=== PATIENT | female | born 2000 | race African-American/Black ===

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

== ENCOUNTER 2019-05-17 16:13 | Emergency (ER) | payer SELFPAY ==
[~2019-05-17] VITALS: Ht 162.6 cm; Wt 54.4 kg
[~2019-05-17 16:13] MED LIST: IBUP-1007 PO; SULF1TAB24 PO
[2019-05-17 16:19] VITALS: BP 118/73
--- NOTE | 2019-05-17 16:27 | PHYS DOC ---
Past Medical History Past Medical History: No Pertinent History Past Surgical History: No Surgical History Alcohol Use: None Drug Use: None Adult General Chief Complaint Chief Complaint: SEXUALLY TRANSMITTED DISEASE HPI HPI Patient is a 18 year old AA female who presents to the emergency room with request for sexually transmitted disease testing. Patient states she was informed by her recent partner that he tested positive for gonorrhea yesterday. She denies any pain at this time. ROS Patient denies any fever, cough, shortness of breath, nausea, vomiting, diarrhea, abdominal pain, or back pain. She denies any dysuria, hematuria, irregular vaginal discharge, or vaginal odor. She reports her last menstrual cycle was on April [id number], she denies any concerns of , however, she reports that she did have unprotected sex with the man who called her. All other ROS is neg unless otherwise noted in HPI. Review of Systems Review of Systems See Above Current Medications Current Medications Current Medications Medications (Trade) Dose Ordered Sig/Elliot Start Time Stop Time Status Last Admin Dose Admin Azithromycin (Zithromax) 1,000 mg 1X ONCE 05/17/19 16:45 05/17/19 16:46 DC 05/17/19 16:50 1,000 MG Ceftriaxone Sodium (Rocephin Im) 250 mg 1X ONCE 05/17/19 16:45 05/17/19 16:46 DC 05/17/19 16:50 250 MG Allergies Allergies Allergies Coded Allergies Type Severity Reaction Last Updated Verified No Known Drug Allergies 05/01/15 No Physical Exam Physical Exam See Above Constitutional: Well developed, well nourished, no acute distress, non-toxic appearance. [] HENT: Normocephalic, atraumatic, bilateral external ears normal, nose normal. [] Eyes: conjunctiva normal, no discharge. [] Cardiovascular:Heart rate regular rhythm Lungs & Thorax: Respirations even and unlabored, no retractions, no respiratory distress Pelvic Exam: Computer Repair Engineer present Samina JOHNSON Abdomen: Nontender, soft External Genitalia: Normal Skin Speculum: Normal vaginal mucosa, foul odor noted, thick white vaginal discharge, normal cervical discharge, cervix non-friable Bimanual: No adnexal masses or tenderness, No CMT Skin: Warm, dry, no erythema, no rash. [] Extremities: No cyanosis, ROM intact, no edema. [] Neurologic: Alert and oriented X 3, no focal deficits noted. [] Psychologic: Affect normal, judgement normal, mood normal. [] Current Patient Data Vital Signs Vital Signs Date Time Temp Pulse Resp B/P (MAP) Pulse Ox O2 Delivery O2 Flow Rate FiO2 05/17/19 16:19 98.6 79 16 118/73 (88) 97 Room Air 98.6 Lab Values Laboratory Tests Test 05/17/19 16:37 POC Urine HCG, Qualitative Hcg negative (Negative) Microbiology 05/17/19 Wet Prep - Final, Complete EKG EKG [] Radiology/Procedures Radiology/Procedures [] Course & Med Decision Making Course & Med Decision Making Pertinent Labs and Imaging studies reviewed. (See chart for details) Patient was treated prophylactically with 250 mg of IM Rocephin, and 1 g of PO Zithromax. Patient was instructed to avoid having intercourse until the results of gonorrhea and chlamydia testing are available, patient was notified that these results would not be available for 48 hours. If one or both of these tests is positive, patient needs to refrain from intercourse for approximately 1 week following the treatment of any current partners. Wet mount was concerning for bacterial vaginosis, and a prescription was written for Flagyl 500 mg by mouth twice a day �7 days. Patient verbalized an understanding of home care, medications, follow-up, and return to ED instructions and was in agreement with the plan of care. [] Dragon Disclaimer Dragon Disclaimer This electronic medical record was generated, in whole or in part, using a voice recognition dictation system. Departure Departure Impression: Primary Impression: Bacterial vaginosis Additional Impression: Contact with and (suspected) exposure to infections with a predominantly sexual mode of transmission Disposition: 01 HOME, SELF-CARE Condition: STABLE Referrals: ANN SZYMANSKI MD (PCP) Patient Instructions: Bacterial Vaginosis, [id number], Sexually Transmitted Disease, [id number] Additional Instructions: Fill the prescription and use as directed. Recommend that you go to your local health department for comprehensive sexually transmitted disease testing. You have been treated for a suspected gonorrhea and chlamydia. Avoid having intercourse until the results of gonorrhea and chlamydia testing are available, these results will not be available for 48 hours. If one or both of these tests is positive, you need to refrain from intercourse for approximately 1 week following the treatment of any current partners. Follow-up with your primary care doctor if symptoms persist, return to ER symptoms worsen. Scripts Metronidazole (FLAGYL) 500 Mg Tablet 1 TAB PO BID, #14 TAB 0 Refills Prov: JOAQUIN NEAL APRN 05/17/19 Problem Qualifiers JOAQUIN NEAL APRN May 17, 2019 16:27
[2019-05-17] MEDS ORDERED: AZITHROMYCIN 250 MG TABLET. PO ONE (16:45)
[2019-05-17] MEDS ORDERED: cefTRIAXone IM 250 MG VIAL IM ONE (16:45)
[2019-05-17] MEDS ORDERED: METR500T PO (17:05)
[2019-05-21 17:09] LABS: GC PROBE Negative (Negative)
== END 2019-05-17 17:21 | disposition home or self-care (01) ==
LOC: ER 16:13
DX: N76.0 Acute vaginitis (principal); B96.89 Other specified bacterial agents as the cause of diseases classified elsewhere; Z20.2 Contact with and (suspected) exposure to infections with a predominantly sexual mode of transmission
CPT/HCPCS: 81025; 87491; 87591; 96372; 99284; J0696; Q0111; Q0144; 99283

== ENCOUNTER 2020-03-08 18:59 | Emergency (ER) | payer MEDICAID ==
[~2020-03-08] VITALS: Ht 162.6 cm; Wt 63.3 kg
[~2020-03-08 18:59] MED LIST changes: +METR500T PO
[2020-03-08 19:22] LABS: BILIRUBIN,URINE NEGATIVE (NEG); CLARITY,URINE CLOUDY; COLOR,URINE YELLOW; NITRITE,URINE NEGATIVE (NEG); PH,URINE 7.5 (<5.0-8.0); PROTEIN,URINE NEGATIVE (NEG-TRACE)
[2020-03-08 19:29] LABS: AMORPHOUS SEDIMENT,UR PRESENT /HPF; BACTERIA,URINE 0 /HPF (0-FEW); RBC,URINE 0 /HPF (0-2); SQUAMOUS EPITHELIAL CELL,UR MANY /LPF; WBC,URINE RARE /HPF (0-4)
--- NOTE | 2020-03-08 19:56 | PHYS DOC ---
Past Medical History Past Medical History: No Pertinent History Past Surgical History: No Surgical History Smoking Status: Never Smoker Alcohol Use: None Drug Use: None General Adult EDM: Chief Complaint: URINARY FREQUENCY HPI: HPI: Patient is a 19 year old FEMALE who presents with is 4-1/2 weeks . She is not seen a cotton wringer yet. States for the last 2 weeks she has had white, frothy, foul-smelling discharge. She states that she does well be tested for sexually transmitted diseases but she does not want to be treated prophylactically today. She is educated that I will take 48 hours and she will only be called if it is positive. She states her understanding of this. P atient denies abdominal pain, nausea, vomiting, diarrhea, fever, dysuria, back pain, headache, dizziness, chest pain, shortness of air, vaginal bleeding.. Review of Systems: Review of Systems: : Denies dysuria. Vaginal discharge [] Heart Score: Risk Factors: Risk Factors: DM, Current or recent (<one month) smoker, HTN, HLP, family history of CAD, obesity. Risk Scores: Score 0 - 3: 2.5% MACE over next 6 weeks - Discharge Home Score 4 - 6: 20.3% MACE over next 6 weeks - Admit for Clinical Observation Score 7 - 10: 72.7% MACE over next 6 weeks - Early Invasive Strategies Allergies: Allergies: Allergies Coded Allergies Type Severity Reaction Last Updated Verified No Known Drug Allergies 05/01/15 No Physical Exam: PE: Constitutional: Well developed, well nourished, no acute distress, non-toxic appearance. [] HENT: Normocephalic, atraumatic, bilateral external ears normal, oropharynx moist, no oral exudates, nose normal. [] Eyes: PERRLA, EOMI, conjunctiva normal, no discharge. [] Neck: Normal range of motion, no tenderness, supple, no stridor. [] Cardiovascular:Heart rate regular rhythm, no murmur [] Lungs & Thorax: Bilateral breath sounds clear to auscultation [] Abdomen: Bowel sounds normal, soft, no tenderness, no masses, no pulsatile masses. [] Skin: Warm, dry, no erythema, no rash. [] Back: No tenderness, no CVA tenderness. [] Extremities: No tenderness, no cyanosis, no clubbing, ROM intact, no edema. [] Neurologic: Alert and oriented X 3, normal motor function, normal sensory function, no focal deficits noted. [] Psychologic: Affect normal, judgement normal, mood normal. Normal physical exam [] Current Patient Data: Labs: Laboratory Tests Test 03/08/20 19:05 03/08/20 19:09 Urine Collection Type Void Urine Color Yellow Urine Clarity Cloudy Urine pH 7.5 (<5.0-8.0) Urine Specific [place] 1.020 (1.000-1.030) Urine Protein Negative mg/dL (NEG-TRACE) Urine Glucose (UA) Negative mg/dL (NEG) Urine Ketones (Stick) Negative mg/dL (NEG) Urine Blood Negative (NEG) Urine Nitrite Negative (NEG) Urine Bilirubin Negative (NEG) Urine Urobilinogen Dipstick 1.0 mg/dL (0.2 mg/dL) Urine Leukocyte Esterase Negative (NEG) Urine RBC 0 /HPF (0-2) Urine WBC Rare /HPF (0-4) Urine Squamous Epithelial Cells Many /LPF Urine Amorphous Sediment Present /HPF Urine Bacteria 0 /HPF (0-FEW) Urine Mucus Slight /LPF POC Urine HCG, Qualitative Hcg positive (Negative) EKG: EKG: [] Radiology/Procedures: Radiology/Procedures: [] Course & Med Decision Making: Course & Med Decision Making Pertinent Labs and Imaging studies reviewed. (See chart for details) Pelvic Exam: Pottery Machine Operator present Abdomen: Nontender External Genitalia: Normal Skin Speculum: Normal vaginal mucosa, thick and white cervical discharge Bimanual: No adnexal masses or tenderness, No CMT [] Dragon Disclaimer: Dragon Disclaimer: This electronic medical record was generated, in whole or in part, using a voice recognition dictation system. Departure Departure Impression: Primary Impression: Bacterial vaginosis Disposition: HOME, SELF-CARE Condition: STABLE Referrals: ANN SZYMANSKI MD (PCP) Patient Instructions: Bacterial Vaginosis, [id number] Additional Instructions: Follow-up with a OB as soon as possible. Take medication with food and as prescribed. Take Tylenol for any pain you may have. Scripts Metronidazole (METRONIDAZOLE) 500 Mg Tablet 1 TAB PO BID for 7 Days, #14 TAB 0 Refills Prov: WILI CORTES APRN 03/08/20 WILI CORTES APRN March 08, 2020 19:56
[2020-03-08] MEDS ORDERED: METR-34 PO (21:07)
[2020-03-08 21:20] VITALS: BP 118/70
[2020-03-10 19:09] LABS: GC PROBE Negative (Negative)
== END 2020-03-08 21:25 | disposition home or self-care (01) ==
LOC: ER 18:59
DX: O23.591 Infection of other part of genital tract in pregnancy, first trimester (principal); B96.89 Other specified bacterial agents as the cause of diseases classified elsewhere; Z3A.01 Less than 8 weeks gestation of pregnancy
CPT/HCPCS: 81001; 81025; 87491; 87591; 99284; Q0111

== ENCOUNTER 2020-04-22 13:41 | Emergency (ER) | payer MEDICAID ==
[~2020-04-22] VITALS: Ht 162.6 cm; Wt 63.6 kg
[~2020-04-22 13:41] MED LIST changes: +METR-34 PO
--- NOTE | 2020-04-22 15:39 | PHYS DOC ---
Past Medical History Past Medical History: No Pertinent History Past Surgical History: No Surgical History Smoking Status: Never Smoker Alcohol Use: None Drug Use: None General Adult EDM: Chief Complaint: VAGINAL BLEEDING HPI: HPI: Patient is a 19 year old [female who presents with vaginal discharge. Patient states that she is 11 weeks , , at this time, has followed up with SYSTEMS SOFTWARE MANAGER, had seen her SYSTEMS SOFTWARE MANAGER approximately 2 weeks ago, has appointment again in a week. States this morning she had wiped after knitting, and noticed a small amount of brownish discharge. States she has noticed some odor to it. States she is had no abdominal pain, no back pain, no dysuria. No pain with urination. States she is no other sexually active with her partner. States she has never had an STD in the past. Denies any urinary frequency. Denies any vaginal bleeding at this time, or earlier. Review of Systems: Review of Systems: Constitutional: Denies fever or chills. [] Respiratory: Denies cough or shortness of breath. [] Cardiovascular: Denies chest pain or edema. [] GI: Denies abdominal pain, nausea, vomiting, bloody stools or diarrhea. [] : Denies dysuria. Does report some brownish vaginal discharge one time earlier today, denies any at other times. Does state it is malodorous. Denies any vaginal bleeding [] Musculoskeletal: Denies back pain or joint pain. [] Integument: Denies rash. [] Neurologic: Denies headache, focal weakness or sensory changes. [] Endocrine: Denies polyuria[] Lymphatic: Denies swollen glands. [] Psychiatric: Denies depression or anxiety. [] Heart Score: Risk Factors: Risk Factors: DM, Current or recent (<one month) smoker, HTN, HLP, family history of CAD, obesity. Risk Scores: Score 0 - 3: 2.5% MACE over next 6 weeks - Discharge Home Score 4 - 6: 20.3% MACE over next 6 weeks - Admit for Clinical Observation Score 7 - 10: 72.7% MACE over next 6 weeks - Early Invasive Strategies Allergies: Allergies: Allergies Coded Allergies Type Severity Reaction Last Updated Verified No Known Drug Allergies 05/01/15 No Physical Exam: PE: Constitutional: Well developed, well nourished, no acute distress, non-toxic appearance. [] HENT: Normocephalic, atraumatic, bilateral external ears normal, oropharynx moist, no oral exudates, nose normal. [] Cardiovascular:Heart rate regular rhythm, no murmur [] Lungs & Thorax: Bilateral breath sounds clear to auscultation [] Abdomen: Bowel sounds normal, soft, no tenderness, no masses, no pulsatile masses. [] Skin: Warm, dry, no erythema, no rash. [] Back: No tenderness, no CVA tenderness. [] Extremities: No tenderness, no cyanosis, no clubbing, ROM intact, no edema. [] Neurologic: Alert and oriented X 3, normal motor function, normal sensory function, no focal deficits noted. [] Psychologic: Affect normal, judgement normal, mood normal. [] Current Patient Data: Labs: Laboratory Tests Test 04/22/20 15:28 POC Urine HCG, Qualitative Hcg positive (Negative) T PREP Final YEAST NONE SEEN TRICHOMONAS NONE SEEN CLUE CELLS NONE SEEN ALTERED FRANCISCA ALTERED FRANCISCA PRESENT SUGGESTIVE OF BACTERIAL VAGINOSIS WBCS FEW Vital Signs: Vital Signs Date Time Temp Pulse Resp B/P (MAP) Pulse Ox O2 Delivery O2 Flow Rate FiO2 04/22/20 15:29 98.3 71 16 123/69 (87) 100 Room Air 98.3 EKG: EKG: [] Radiology/Procedures: Radiology/Procedures: [] Course & Med Decision Making: Course & Med Decision Making Pertinent Labs and Imaging studies reviewed. (See chart for details) heart tones 160. [] Reviewed labs, notes prior visit here with diagnosis of bacterial vaginosis on March 08, 2020. Was given prescription for Flagyl. Does report she finished this prescription Patient also reports that when she saw her SYSTEMS SOFTWARE MANAGER the first time in end of March, she was also diagnosed with BV at that time and put on some vaginal suppositories, which she had better tolerance Does have follow-up with SYSTEMS SOFTWARE MANAGER 04/30. Nicole Disclaimer: Nicole Disclaimer: This electronic medical record was generated, in whole or in part, using a voice recognition dictation system. Departure Departure Impression: Primary Impression: Bacterial vaginosis Disposition: HOME, SELF-CARE Condition: STABLE Referrals: NO PCP (PCP) Patient Instructions: Bacterial Vaginosis Additional Instructions: As we discussed, keep your follow-up appointment with your SYSTEMS SOFTWARE MANAGER next Tuesday. supervisor fabrication department and fill the prescription for the medication to treat your bacterial infection. Make sure you take this for the 5 days it as prescribed. Let your SYSTEMS SOFTWARE MANAGER know that you were found to have this again. The other test for gonorrhea and chlamydia are not back, they will take 1 to 2 days typically. If they end up being found in your urine, they will notify you of the findings. I f they do not contact you, that will generally mean that was negative. Scripts Metronidazole (METROGEL-VAGINAL) 70 Gm Gel.w.appl 1 APPFUL VG QHS for 5 Days, #1 EACH 0 Refills Prov: TRUE EGAN APRN 04/22/20 Justicifation of Admission Dx: Justifications for Admission: Justification of Admission Dx: N/A TRUE EGAN APRN Apr 22, 2020 15:39
[2020-04-22 15:49] LABS: BILIRUBIN,URINE NEGATIVE (NEG); CLARITY,URINE CLEAR; COLOR,URINE YELLOW; NITRITE,URINE NEGATIVE (NEG); PH,URINE 7.5 (<5.0-8.0); PROTEIN,URINE NEGATIVE (NEG-TRACE); UROBILINOGEN,URINE 0.2 mg/dL (0.2 mg/dL)
[2020-04-22 16:07] LABS: SQUAMOUS EPITHELIAL CELL,UR MANY /LPF
[2020-04-22 16:08] LABS: BACTERIA,URINE 0 /HPF (0-FEW)
[2020-04-22 16:30] VITALS: BP 101/66
[2020-04-22] MEDS ORDERED: METR70GE14 VG (16:40)
[2020-04-23 21:08] LABS: GC PROBE Negative (Negative)
== END 2020-04-22 17:08 | disposition home or self-care (01) ==
LOC: ER 13:41
DX: O23.591 Infection of other part of genital tract in pregnancy, first trimester (principal); B96.89 Other specified bacterial agents as the cause of diseases classified elsewhere; Z3A.11 11 weeks gestation of pregnancy
CPT/HCPCS: 81001; 81025; 87491; 87591; 99283; Q0111

== ENCOUNTER 2020-06-28 13:23 | Emergency (ER) | payer MEDICAID ==
[~2020-06-28] VITALS: Ht 162.6 cm; Wt 70.9 kg
[~2020-06-28 13:23] MED LIST changes: +METR70GE14 VG
[2020-06-28 13:40] VITALS: BP 112/52
[2020-06-28 14:28] LABS: BILIRUBIN,URINE NEGATIVE (NEG); CLARITY,URINE CLOUDY; COLOR,URINE YELLOW; NITRITE,URINE NEGATIVE (NEG); PH,URINE 7.5 (<5.0-8.0); PROTEIN,URINE NEGATIVE (NEG-TRACE)
[2020-06-28 14:55] LABS: BACTERIA,URINE FEW /HPF (0-FEW); RBC,URINE 0 /HPF (0-2); SQUAMOUS EPITHELIAL CELL,UR FEW /LPF; WBC,URINE RARE /HPF (0-4)
[2020-06-28] MEDS ORDERED: METR500T PO (15:04)
--- NOTE | 2020-06-28 15:04 | PHYS DOC ---
Past Medical History Past Medical History: No Pertinent History Past Surgical History: No Surgical History Smoking Status: Never Smoker Alcohol Use: None Drug Use: None General Adult EDM: Chief Complaint: VAGINAL PROBLEM HPI: HPI: Patient is a 19 year old AA female who presents to the emergency department wi complaints of foul-smelling irregular vaginal discharge for the last 2 days. Patient states she is 20 weeks , she denies any vaginal bleeding or abdominal pain. Patient denies any nausea, vomiting, dysuria, hematuria, increased urinary frequency, or fever. She reports a history of bacterial vaginosis and thinks that she has BV again. She currently denies any pain. Review of Systems: Review of Systems: Constitutional: Denies fever or chills. [] GI: Denies abdominal pain, nausea, vomiting, or diarrhea. [] : Denies dysuria, see HPI Musculoskeletal: Denies back pain or joint pain. [] Integument: Denies rash. [] Neurologic: Denies headache Psychiatric: Denies depression or anxiety Complete ROS is negative unless otherwise stated in the HPI. [] Heart Score: Risk Factors: Risk Factors: DM, Current or recent (<one month) smoker, HTN, HLP, family history of CAD, obesity. Risk Scores: Score 0 - 3: 2.5% MACE over next 6 weeks - Discharge Home Score 4 - 6: 20.3% MACE over next 6 weeks - Admit for Clinical Observation Score 7 - 10: 72.7% MACE over next 6 weeks - Early Invasive Strategies Allergies: Allergies: Allergies Coded Allergies Type Severity Reaction Last Updated Verified No Known Drug Allergies 05/01/15 No Physical Exam: PE: Constitutional: Well developed, well nourished, no acute distress, non-toxic appearance. HENT: Normocephalic, atraumatic, bilateral external ears normal, nose normal. Eyes: PERRLA, EOMI, conjunctiva normal, no discharge. Neck: Normal range of motion, no stridor. Cardiovascular: Heart rate regular rhythm Lungs & Thorax: Respirations even and unlabored, no retractions, no respiratory distress Pelvic Exam: Fire Crew Worker present Abdomen: Nontender, soft External Genitalia: Normal Skin Speculum: Normal vaginal mucosa, large amount of pale yellow vaginal d ischarge, cervix is nonfriable and closed Bimanual: No adnexal masses or tenderness, No CMT Skin: Warm, dry, no erythema, no rash. Extremities: No cyanosis, ROM intact, no edema. Neurologic: Alert and oriented X 3, no focal deficits noted. Psychologic: Affect normal, judgement normal, mood normal. Current Patient Data: Labs: Laboratory Tests Test 06/28/20 14:15 Urine Collection Type Unknown Urine Color Yellow Urine Clarity Cloudy Urine pH 7.5 (<5.0-8.0) Urine Specific [place] 1.010 (1.000-1.030) Urine Protein Negative mg/dL (NEG-TRACE) Urine Glucose (UA) 100 mg/dL (NEG) Urine Ketones (Stick) Negative mg/dL (NEG) Urine Blood Negative (NEG) Urine Nitrite Negative (NEG) Urine Bilirubin Negative (NEG) Urine Urobilinogen Dipstick 1.0 mg/dL (0.2 mg/dL) Urine Leukocyte Esterase Negative (NEG) Urine RBC 0 /HPF (0-2) Urine WBC Rare /HPF (0-4) Urine Squamous Epithelial Cells Few /LPF Urine Bacteria Few /HPF (0-FEW) Microbiology 06/28/20 Wet Prep - Final, Complete Vital Signs: Vital Signs Date Time Temp Pulse Resp B/P (MAP) Pulse Ox O2 Delivery O2 Flow Rate FiO2 06/28/20 13:40 97.0 70 16 112/52 (72) 98 Room Air 97.0 EKG: EKG: [] Radiology/Procedures: Radiology/Procedures: [] Course & Med Decision Making: Course & Med Decision Making Pertinent Labs and Imaging studies reviewed. (See chart for details) 19-year-old female presents emergency department with concerns of bacterial vaginosis. Pelvic exam reveals pale yellow vaginal discharge. Wet mount was concerning for bacterial vaginosis. I offered to treat the patient for possible gonorrhea and chlamydia. Patient denied prophylactic treatment for gonorrhea and chlamydia. I advised she will need to return to the emergency room if 1 or both of these tests come back positive. Prescription was written for Flagyl 500 mg p.o. twice daily x7 days. Encourage patient to follow-up with her FURNACE MASON next week. Return to the ER if symptoms worsen. Patient verbalized an understanding of home care, medications, follow-up, and return to ED instructions and was in agreement with the plan of care. [] Nicole Disclaimer: Dragon Disclaimer: This electronic medical record was generated, in whole or in part, using a voice recognition dictation system. Departure Departure Impression: Primary Impression: Bacterial vaginosis Disposition: HOME, SELF-CARE Condition: STABLE Referrals: NO PCP (PCP) Patient Instructions: Bacterial Vaginosis, [id number] Additional Instructions: Fill the prescription and use as directed. You have been tested for gonorrhea and chlamydia, these results will not be available for 48 hours. If one or both of these tests is positive, you will need to return to the ER for treatment. Follow-up with your FURNACE MASON next week, return to ER if symptoms worsen. Scripts Metronidazole (FLAGYL) 500 Mg Tablet 1 TAB PO BID, #14 TAB 0 Refills Prov: JOAQUIN NEAL APRN 06/28/20 Justicifation of Admission Dx: Justifications for Admission: Justification of Admission Dx: N/A JOAQUIN NEAL APRN Jun 28, 2020 15:04
[2020-06-30 22:08] LABS: GC PROBE Negative (Negative)
== END 2020-06-28 15:21 | disposition home or self-care (01) ==
LOC: ER 13:23
DX: O23.592 Infection of other part of genital tract in pregnancy, second trimester (principal); Z3A.20 20 weeks gestation of pregnancy
CPT/HCPCS: 81001; 87491; 87591; 99284; Q0111

== ENCOUNTER 2020-07-03 22:10 | Observation (INO) | payer MEDICAID ==
[2020-07-03] MEDS ORDERED: IV RINGERS,LACTATED 1000ML 1,000 ML IV SCH (22:11)
[2020-07-03 22:38] LABS: BILIRUBIN,URINE NEGATIVE (NEG); CLARITY,URINE CLEAR; COLOR,URINE YELLOW; NITRITE,URINE NEGATIVE (NEG); PH,URINE 6.5 (<5.0-8.0); PROTEIN,URINE NEGATIVE (NEG-TRACE); UROBILINOGEN,URINE 0.2 mg/dL (0.2 mg/dL)
[2020-07-03 22:42] LABS: SQUAMOUS EPITHELIAL CELL,UR FEW /LPF
[2020-07-03 22:43] LABS: BACTERIA,URINE FEW /HPF (0-FEW); RBC,URINE 0 /HPF (0-2)
[2020-07-03 22:44] LABS: AMPHETAMINE/METHAMPHETAMINE NEG (NEG); BARBITURATES NEG (NEG); BENZODIAZEPINES NEG (NEG); CANNABINOIDS NEG (NEG); COCAINE NEG (NEG); METHADONE NEG (NEG); OPIATES NEG (NEG); PHENCYCLIDINE NEG (NEG); YEAST,URINE PRESENT /HPF
== END 2020-07-03 23:20 | disposition home or self-care (01) ==
LOC: 3 SO LND 22:10
PROVIDERS: ADMIT Obstetrics & Gynecology; ATTEND Obstetrics & Gynecology
DX: O26.892 Other specified pregnancy related conditions, second trimester (principal); O36.8920 Maternal care for other specified fetal problems, second trimester, not applicable or unspecified; R10.2 Pelvic and perineal pain; D56.0 Alpha thalassemia; Z3A.21 21 weeks gestation of pregnancy
CPT/HCPCS: 80307; 81001; 87086; G0378; G0379; 87077